=== PATIENT | female | born 1960 | race Caucasian/White ===

== ENCOUNTER 2016-08-25 10:15 | Emergency (ER) | payer BC ==
[~2016-08-25] VITALS: Ht 160 cm; Wt 87.3 kg
[2016-08-25 10:17] VITALS: BP 182/99; PULSE 74; TEMP 98.5
[2016-08-25] MEDS ORDERED: PAXIL40 MG PO (10:21)
[2016-08-25] MEDS ORDERED: NORVASC 10MG10 MG PO (10:21)
[2016-08-25] MEDS ORDERED: NORCO 325 MG-51 TAB PO (11:58)
== END 2016-08-25 12:13 | disposition home or self-care (01) ==
LOC: COL.ER 10:15
DX: S80.02XA Contusion of left knee, initial encounter (principal); W00.0XXA Fall on same level due to ice and snow, initial encounter; I10 Essential (primary) hypertension
CPT/HCPCS: L1830

== ENCOUNTER → 2016-09-30 | Outpatient (CLI) | payer BC ==
[~2016-09-30] MED LIST: NORCO 325 MG-51 TAB PO; NORVASC 10MG10 MG PO; PAXIL40 MG PO
== END ==
LOC: MC.RAD 08:00
DX: Z12.31 Encounter for screening mammogram for malignant neoplasm of breast (principal)

== ENCOUNTER 2016-10-16 05:31 | Emergency (ER) | payer BC ==
[~2016-10-16] VITALS: Ht 157.5 cm; Wt 86.4 kg
[2016-10-16 05:35] VITALS: TEMP 98.5
[2016-10-16 05:54] LABS: BASO # 0.1 (0.0-0.2); BASO % 0.8 % (0.0-2.0); EOS # 0.3 (0.0-0.7); EOS % 3.2 % (0-4.0); GRAN # 4.4 (1.4-6.5); GRAN % 51.8 % (42.2-75.2); HEMATOCRIT 46.6 % (37.0-47.0); LYMPH # 3.1 (1.2-3.4); LYMPH % 36.9 % (20.0-51.0); MEAN CELL VOLUME 79 fl (80.0-100.0); MEAN CORPUSCULAR HEMOGLOBIN 27 pg (27.0-31.0); MEAN CORPUSCULAR HGB CONC 34 g/dl (33.0-37.0); MEAN PLATELET VOLUME 9.6 fl (7.4-10.4); MONO # 0.6 (0.1-0.6); MONO % 6.9 % (1.7-9.3); PLATELET COUNT 260 K/mm3 (130-400); RED BLOOD COUNT 5.89 M/mm3 (4.10-5.30); REDCELL DISTRIBUTION WIDTH-CV 13.4 % (11.5-14.5); WHITE BLOOD COUNT 8.4 K/mm3 (4.8-10.8)
[2016-10-16 06:03] LABS: C-REACTIVE PROTEIN 1.2 mg/dL (0.0-0.9); CALCIUM 9.3 mg/dL (8.4-10.2); CREATININE, serum 0.72 mg/dL (0.52-1.25); POTASSIUM 3.6 mmol/L (3.4-5.0)
[2016-10-16 06:27] LABS: ERYTHROCYTE SEDIMENTATION RATE 13 mm/hr (0-30)
[2016-10-16 10:49] VITALS: BP 139/81; PULSE 66
== END 2016-10-16 10:49 | disposition home or self-care (01) ==
LOC: COL.ER 05:31
PROVIDERS: Emergency Medicine
DX: F44.9 Dissociative and conversion disorder, unspecified (principal); I10 Essential (primary) hypertension; Z87.891 Personal history of nicotine dependence
CPT/HCPCS: J2060

== ENCOUNTER → 2017-11-11 | Outpatient (CLI) | payer BC | LOC: MC.RAD 10-31 07:20 | DX: Z12.31 Encounter for screening mammogram for malignant neoplasm of breast (principal) ==

== ENCOUNTER → 2018-12-11 | Outpatient (CLI) | payer BC | LOC: MC.RAD 07:15 | DX: Z12.31 Encounter for screening mammogram for malignant neoplasm of breast (principal) ==

== ENCOUNTER 2021-04-11 08:46 | Emergency (ER) | payer BC ==
[~2021-04-11] VITALS: Ht 160 cm; Wt 84.1 kg
[2021-04-11 12:39] VITALS: BP 170/98; PULSE 98
== END 2021-04-11 12:42 | disposition home or self-care (01) ==
LOC: COL.ER 08:46
DX: S52.571A Other intraarticular fracture of lower end of right radius, initial encounter for closed fracture (principal); S52.611A Displaced fracture of right ulna styloid process, initial encounter for closed fracture; I10 Essential (primary) hypertension; Z79.899 Other long term (current) drug therapy; W19.XXXA Unspecified fall, initial encounter
CPT/HCPCS: J3010